=== PATIENT | female | born 1955 | race Caucasian/White ===

== ENCOUNTER → 2020-10-23 13:24 | Outpatient (CLI) | payer BC, SELFPAY ==
--- NOTE | ~2020-10-23 | DEXA_ITS ---
Bone Density Report Name: Nikkie Holloway Age: 64 Sex: Female Ethnicity: White Date of : 1955 Indication: postmenopausal; screening for osteoporosis; height loss; Referring Provider: JOSE, AALIYAH Study: Bone densitometry was performed. Exam Date: October 23, 2020 Accession number: [id number] There is hypertrophic degenerative change of the lumbar spine, which results in higher than expected spine bone mineral density measurements. These spine BMD and T score and Z score measurements are not reflective of the patient's true general bone mineral density. Bone Density: Region BMD T-score Z-score Classification AP Spine (L1-L4) 1.153 1.0 2.7 Normal Femoral Neck (Left) 0.831 -0.2 1.3 Normal Total Hip (Left) 0.961 0.2 1.4 Normal Femoral Neck (Right) 0.776 -0.7 0.8 Normal Total Hip (Right) 0.932 -0.1 1.1 Normal Total Hip Mean 0.947 0.1 1.3 Normal World Health Organization criteria for BMD impression classify patients as: Normal (T-score at or above -1.0), Osteopenia (T-score between -1.0 and -2.5), or Osteoporosis (T-score at or below -2.5). 10-year Fracture Risk: FRAX not reported because: All T-scores for Spine Total, Hip Total, Femoral Neck at or above -1.0 Clinical Information Provided by Patient: Has used the following medications: Vitamin D, Calcium Patient maximum height was 64 Menopause Age: 53 Drinks caffeinated beverages Onset of menses at age 10 Number of children 5 Impression: The patient has normal bone mass. There is hypertrophic degenerative change of the lumbar spine, which results in higher than expected spine bone mineral density measurements. These spine BMD and T score and Z score measurements are not reflective of the patient's true general bone mineral density. Discussion: BONE DENSITY IS ABOVE THE MINIMUM DESIRABLE LEVEL AT ALL SKELETAL SITES TESTED. This patient?s bone mineral density is above the minimum desirable level (T-score -1.0 or better) at all sites measured. The patient should follow a healthful lifestyle (good nutrition with adequate calcium and vitamin D, and appropriate weight-bearing exercise). Follow-Up: Consider repeating this study in 5 years or sooner if there is some new clinical indication. Reported by: BURAK on 10/23/2020 1:58:00 PM. Reviewed, dictated and finalized at location [facility]
== END ==
PROVIDERS: PCP Internal Medicine; Visit Provider Nurse Practitioner
DX: Z78.0 Asymptomatic menopausal state (principal)
CPT/HCPCS: 77080

== ENCOUNTER → 2022-03-25 11:38 | Outpatient (CLI) | payer MEDICARE, SELFPAY ==
--- NOTE | ~2022-03-25 | XR_ITS ---
XR foot LT 2V DATE: 03/25/2022 11:57 INDICATION: Left foot pain TECHNIQUE: AP and lateral views COMPARISON: None FINDINGS: Prominent plantar calcaneal enthesopathy without associated erosive change or periostitis. Mild osteoarthritis at the first metatarsophalangeal joint. There is mild osteoarthritis at the tarso metatarsal joints. No fracture, dislocation, periosteal reaction or bone destruction is detected. IMPRESSION: Prominent plantar calcaneal enthesopathy Mild osteoarthritis Reviewed, dictated and finalized at location A.
--- NOTE | ~2022-03-25 | XR_ITS ---
XR knee RT min 4V DATE: 03/25/2022 11:57 INDICATION: Right knee pain TECHNIQUE: 4 views COMPARISON: None FINDINGS: There is periarticular spurring at all 3 compartments, more prominent at the patellofemoral and medial compartments. There is mild loss of medial compartment joint space. No fracture or dislocation or joint effusion. No radiopaque intra-articular loose body or chondrocalc inosis. No periosteal reaction or bone destruction. IMPRESSION: Tricompartment osteoarthritis, moderate at the patellofemoral and medial compartments, mi ld at the lateral compartment Reviewed, dictated and finalized at location A. IMPRESSION: Tricompartment osteoarthritis, moderate at the patellofemoral and m edial compartments, mild at the lateral compartment
== END ==
PROVIDERS: PCP Nurse Practitioner Family; Visit Provider Nurse Practitioner Family
DX: M19.072 Primary osteoarthritis, left ankle and foot (principal); M17.11 Unilateral primary osteoarthritis, right knee
CPT/HCPCS: 73564; 73620

== ENCOUNTER 2022-06-09 14:04 | Outpatient (CLI) | payer MEDICARE, SELFPAY ==
--- NOTE | ~2022-06-09 | XR_ITS ---
XR shoulder LT min 2V 06/09/2022 14:36 Indication: Left shoulder pain Procedure: 4 views left shoulder Comparison: No prior studies for comparison. 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 No fracture or traumatic m alalignment. No significant soft tissue abnormality. No foreign bodies. There is chondrocalcinosis. Impression: 1: Mild polyarticular osteoarthritis. Reviewed, dictated and finalized at location B. Impression: 1: Mild polyarticular osteoarthritis.
== END 2022-06-09 14:05 | disposition home or self-care (01) ==
PROVIDERS: PCP Nurse Practitioner Family; Visit Provider Nurse Practitioner Family
DX: M19.012 Primary osteoarthritis, left shoulder (principal)
CPT/HCPCS: 73030

== ENCOUNTER → 2022-12-21 10:42 | Outpatient (CLI) | payer MEDICARE, SELFPAY ==
--- NOTE | ~2022-12-21 | XR_ITS ---
EXAMINATION: XR ankle LT min 3V DATE: 12/21/2022 11:01 INDICATION: Left ankle pain. TECHNIQUE: 4 views of left ankle were obtained. COMPARISON: Left foot radiographs 03/25/2022 FINDINGS: Bone alignment is normal. There is chronic heterotopic calcification distal to fibula. No a cute fracture. Joint spaces are normal. There are enthesophytes at the posterior and plantar aspects of calcaneal tuberosity. IMPRESSION: 1. No acute fracture. Reviewed, dictated and finalized at location A. IMPRESSION: 1. No acute fracture.
== END ==
PROVIDERS: PCP Nurse Practitioner Family; Visit Provider Nurse Practitioner Family
DX: M25.572 Pain in left ankle and joints of left foot (principal)
CPT/HCPCS: 73610

== ENCOUNTER 2024-10-01 11:20 | Outpatient (CLI) | payer MEDICARE, SELFPAY ==
--- NOTE | ~2024-10-01 | US_ITS ---
EXAM: PELVIC ULTRASOUND, transabdominal only HISTORY: Left adnexal fullness on physical examination. 5 para 5 COMPARISON: None FINDINGS: UTERUS: 6.7 x 2.7 x 4.4 cm. The uterus is anteverted and anteflexed. The endometrial complex is not thickened and measures 3 mm. RIGHT OVARY: Despite prolonged interrogation, the right ovary was not visualized. LEFT OVARY: The left ovary is unremarkable in echogenicity and size measuring 2.0 x 1.6 x 3.1 cm Dopplerable flow is identified. No free fluid is identified within the pelvis. IMPRESSION: Despite prolonged interrogation, the right ovary was not visualized. Remainder of examination is unremarkable. If clinical suspicion persists, cross-sectional imaging (preferably with MRI) is suggested for furthe r evaluation. Reviewed, dictated and finalized at location A. [facility] IMPRESSION: Despite prolonged interrogation, the right ovary was not visualized. Remainder of examination is unremarkable. If clinical suspicion persists, cross-sectional imaging (preferably with MRI) i s suggested for further evaluation.
== END 2024-10-01 11:21 | disposition home or self-care (01) ==
LOC: MICIMG 11:21
PROVIDERS: PCP Nurse Practitioner; Visit Provider Nurse Practitioner
DX: R19.09 Other intra-abdominal and pelvic swelling, mass and lump (principal)
CPT/HCPCS: 76856

== ENCOUNTER 2024-10-15 11:07 | Outpatient (CLI) | payer MEDICARE, SELFPAY ==
--- NOTE | ~2024-10-15 | DEXA_ITS ---
Bone Density Report Name: RICKY VIEYRA Age: 68 Sex: Female Ethnicity: White Date of : 1955 Indication: postmenopausal; screening for osteoporosis; height loss; Referring Provider: JOSE, AALIYAH Study: Bone densitometry was performed. Exam Date: October 15, 2024 Accession number: [id number] Bone Density: Region BMD T-score Z-score Classification AP Spine(L1, L2, L3) 1.140 1.1 3.1 Normal Femoral Neck (Left) 0.801 -0.4 1.3 Normal Total Hip (Left) 0.932 -0.1 1.4 Normal Femoral Neck (Right) 0.725 -1.1 0.6 Osteopenia Total Hip (Right) 0.858 -0.7 0.7 Normal Total Hip Mean 0.895 -0.4 1.1 Normal World Health Organization criteria for BMD impression classify patients as: Normal (T-score at or above -1.0), Osteopenia (T-score between -1.0 and -2.5), or Osteoporosis (T-score at or below -2.5). 10-year Fracture Risk(1): Major Osteoporotic Fracture 9.0% Hip Fracture 0.9% Reported Risk Factors: [place] (), Neck BMD=0.725, BMI=25.2 (1) FRAX(R) Version 3.08. Fracture probability calculated for an untreated patient. Fracture probability may be lower if the patient has received treatment. Clinical Information Provided by Patient: Has used the following medications: Vitamin D, Calcium Patient maximum height was 64 Menopause Age: 56 Drinks caffeinated beverages Onset of menses at age 10 Number of children 5 Impression: The patient has low bone mass, based on the Right Femoral Neck T-score. The patient has an estimated ten-year risk of hip fracture of 0.9% and an estimated ten-year risk of major fracture of 9%, based on the WHO FRAX algorithm. Discussion: BONE DENSITY IS LOW AT ONE OR MORE SKELETAL SITES. This patient's lowest T-score is low at one or more skeletal sites. It meets the World Health Organization's (WHO) criteria for ?low bone mass? (T-score between -1.0 and -2.5). The patient's 10-year risk of fracture as calculated by FRAX is less than the threshold where pharmacological therapy is recommended by the National Osteoporosis Foundation (NOF). However, all treatment decisions require clinical judgment and consideration of individual patient factors, including patient preferences, comorbidities, previous drug use, risk factors not captured in the FRAX model (e.g., frailty, falls, vitamin D deficiency, increased bone turnover, interval significant decline in bone density) and possible under or overestimation of fracture risk by FRAX. The patient should follow a healthful lifestyle (good nutrition with adequate calcium and vitamin D, and appropriate weight-bearing exercise). Follow-Up: Consider repeating this study in 2 to 3 years to reassess this patient's status, or sooner if there is some new clinical indication. Reported by: BRANT on 10/15/2024 11:43:00 AM. Reviewed, dictated and finalized at location A. [facility]
--- OUTSIDE RECORDS SUMMARY | 2024-10-15 11:52 | XMS_ITS | Clinical Summary ---
Author Organization [facility] Address [facility]ly [facility] [place] [address] [place] [address] Care Team Providers Care Bellows Filler Name Role Phone Alden Nolen MD Primary Care Provider Unavaila ble Allergies No known active allergies Medications aspirin EC (ASPIRIN EC) 81 MG tablet Active calcium carbonate-vitami n D (OYSTER SHELL CALCIUM-VITAMIN D) 500-200 MG-UNIT Tab Active sertraline 100 MG tablet Take 100 mg by mouth daily. 03/02/2021 Active losartan-hydroCH LOROthiazide 50-12.5 MG tablet Take 1 tablet by mouth daily. 03/02/2021 Active Cholecalciferol 50 MCG (1999 UT) Tab Active Social History Tobacco Use Types Packs/Day Years Used Date Smoking Tobacco: Never Smokeless Tobacco: Never Alcohol Use Standard Drinks/Week Comments Yes 0 (1 standard drink = 0.6 oz pur e alcohol) occasional Comments Unknown Sex and Gender Information Value Date Recorded Sex Assigned at Not on file Legal Sex Female 7:50 PM CDT Gender Identity Not on file Sexual Orientation Not on file Last Filed Vital Signs Vital Sign Reading Time Taken Comments Blood Pressure 138/96 03/25/2021 12:26 PM CDT Pulse 65 03/25/2021 12:26 PM CDT Temperature 36.7 ??C (98.1 ??F) 03/25/2021 12:26 PM C DT Respiratory Rate 18 03/25/2021 12:26 PM CDT Oxygen Saturation 97% 03/25/2021 12:26 PM CDT Inhaled Oxygen Concentration - - Weight 63.5 kg (140 lb) 03/25/2021 12:26 PM CDT Height 160 cm (5' 3 ) 03/25/2021 12:26 PM CDT Body Mass Index 24.8 03/25/2021 12:26 PM CDT Plan of Treatment Health Maintenance Due Date Last Done Comments Colorectal Cancer Screening Colonoscopy (10 Years) 1955 Hepatitis C 12/03/1973 DTaP, Tdap and Td Vaccines ( 1 - Tdap) 12/03/1974 Mammogram Screening 1995 Zoster Vaccines (1 of 2) 12/03/2005 Annual Medicare Wellness Visit 12/03/2020 Dexa Scan (General) 12/03/2020 Pneumococcal Vaccine: 65+ Years (1 of 1 - PCV) 12/03/2020 COVID-19 Vaccine (3 - 2023-2 5 season) 2024 01/06/2021, 12/14/2020 Influenza Adult (#1) 2024 RSV Immunization or 60+ Years (1 - 1-dose 75+ series) 12/03/2030 Meningococcal B Vaccine Aged Out No l onger eligible based on patient's age to complete this topic Meningococcal Vaccine Aged Out No larissa shanika eligible based on patient's age to complete this topic RSV Immunizations Under 20 Months Aged Out No longer eligible b ased on patient's age to complete this topic Insurance [facility] Care Teams Bellows Filler Relationship Specialty Start Date End Date Alden Nolen MD PCP - General INTERNAL MEDICINE 03/25/21
== END 2024-10-15 11:08 | disposition home or self-care (01) ==
PROVIDERS: PCP Nurse Practitioner; Visit Provider Nurse Practitioner
DX: Z78.0 Asymptomatic menopausal state (principal); M85.851 Other specified disorders of bone density and structure, right thigh
CPT/HCPCS: 77080

== ENCOUNTER → 2024-12-19 15:00 | Outpatient (CLI) | payer MEDICARE, SELFPAY ==
--- NOTE | ~2024-12-19 | XR_ITS ---
Lumbosacral Spine: AP and lateral views Clinical History: Pain Findings: There is levoscoliosis. No fracture or subluxation evident otherwise. There is moderate to advanced degenerative disc narrowing throughout the lumbar spine. There is advanced facet arthropathy from L3 through S1. The sacroiliac joints are normally outlined. Impression: Advanced degenerative spondylosis, with levoscoliosis. Reviewed, dictated and finalized at location . Impression: Advanced degenerative spondylosis, with levoscoliosis.
--- OUTSIDE RECORDS SUMMARY | 2024-12-19 15:27 | XMS_ITS | Clinical Summary ---
Author Organization [facility] Address [address] [place] [address] Care Team Providers Care Strickler Attendant Name Role Phone Alden Nolen MD Primary [...] 65 03/25/2021 12:26 PM CDT Temperature 36.7 C (98.1 F) 03/25/2021 12:26 PM CDT Respiratory Rate 18 03/25/2021 12:26 PM CDT [...] - 2023-2 5 season) 2024 01/06/2021, 12/14/2020 RSV Immunization or 60+ Years (1 - [...] age to complete this topic Insurance MEDICARE AET Care Teams Strickler Attendant Relationship Specialty Start Date End Date Alden Nolen MD PCP - General INTERNAL MEDICINE 03/25/21
== END ==
LOC: EXPTRAD 15:03
PROVIDERS: PCP Nurse Practitioner Family; Visit Provider Nurse Practitioner Family
DX: M47.897 Other spondylosis, lumbosacral region (principal); M41.87 Other forms of scoliosis, lumbosacral region
CPT/HCPCS: 72100